=== PATIENT | male | born 1960 | race Caucasian/White ===

== ENCOUNTER 2019-01-28 12:55 | Emergency (ER) | payer OTHER ==
[2019-01-28 13:34] VITALS: BP 147/90; PULSE 82
--- NOTE | 2019-01-28 13:38 | EDM.PDOC ---
ED HPI GENERAL MEDICAL PROBLEM - General Chief Complaint: Upper Extremity Injury/Pain Stated Complaint: left hand crush injury Time Seen by Provider: 01/28/19 13:19 Source of Information: Reports: Patient History Limitations: Reports: No Limitations - History of Present Illness INITIAL COMMENTS - FREE TEXT/NARRATIVE: Patient's left hand was injured at patient's work station, contusion sustained diagonally across base of 2nd/3rd fingers. He denies having contact with the metal over palm/other fingers. Complains that it is stiff to try to move 2nd and 3rd fingers, some tenderness also, although more in 3rd finger. Stiffness has improved since incident. No deformity. No numbness. Skin intact. No other complaints. Left Finger-Middle Pain Score (Numeric/FACES): 5 - Related Data Allergies Allergy/AdvReac Type Severity Reaction Status Date / Time Penicillins Allergy Cannot Verified 01/28/19 13:17 Remember bupropion [From Contrave] AdvReac Hypertensio Unverified 01/28/19 13:17 n cyclobenzaprine AdvReac Nausea Verified 01/28/19 13:16 [From Flexeril] naltrexone [From Contrave] AdvReac Hypertensio Unverified 01/28/19 13:17 n Home Meds: Home Meds Aspirin [Halfprin] 81 mg PO DAILY 01/28/19 [History] Metoprolol Succinate 25 mg PO DAILY 01/28/19 [History] Ramipril 1 cap PO BID 01/28/19 [History] Simvastatin 20 mg PO BEDTIME 01/28/19 [History] Past Medical History Cardiovascular History: Reports: High Cholesterol, Hypertension Endocrine/Metabolic History: Reports: Obesity/BMI 30+ Social & Family History - Family History Family Medical History: Noncontributory - Tobacco Use Smoking Status *Q: Never Smoker - Caffeine Use Caffeine Use: Reports: Coffee, Soda - Alcohol Use Alcohol Use History: Yes Days Per Week of Alcohol Use: 2 Number of Drinks Per Day: 3 Total Drinks Per Week: 6 - Recreational Drug Use Recreational Drug Use: No Drug Use in Last 12 Months: No Review of Systems - Review of Systems Review Of Systems: ROS reveals no pertinent complaints other than HPI. ED EXAM, GENERAL - Physical Exam Exam: See Below Exam Limited By: No Limitations General Appearance: Alert, WD/WN, No Apparent Distress Eye Exam: Bilateral Eye: EOMI, PERRL Throat/Mouth: Normal Lips, Normal Voice, No Airway Compromise Head: Atraumatic, Normocephalic Neck: Supple Cardiovascular: Normal Peripheral Pulses Extremities: Other (Exam of left hand and fingers shows no swelling/redness/ discoloration of either hand or fingers. Skin intact. Tendon function appears intact, although patient moves 3rd finger stiffly. Able to flex/extend all digits. No focal tenderness with palpation over fingers/hand. No bruising. ) Neurological: Alert, Oriented, Normal Cognition Psychiatric: Normal Affect, Normal Mood Skin Exam: Warm, Dry, Intact, Normal Color. No: Ecchymosis, Erythema, Mottled, Pallor, Wound/Incision Course - Vital Signs Last Recorded V/S: Last Vital Signs Temp 36.9 C 01/28/19 13:33 Pulse 82 01/28/19 13:33 Resp 18 01/28/19 13:33 BP 147/90 H 01/28/19 13:33 Pulse Ox 99 01/28/19 13:33 - Orders/Labs/Meds Orders: Active Orders 24 hr Category Date Time Status Hand Comp Min 3V Lt [CR] Stat Exams 01/28/19 13:02 Taken Meds: Medications Discontinued Medications Generic Name Dose Route Start Last Admin Trade Name Freq PRN Reason Stop Dose Admin Acetaminophen 650 mg 01/28/19 13:36 Tylenol PO 01/28/19 13:37 NOW ONE - Re-Assessments/Exams Free Text/Narrative Re-Assessment/Exam: 01/28/19 13:56 Xrays of hands/fingers performed and no acute fracture identified. Changes in joints suggestive of degenerative joint disease. Small opaque body noted distal index finger that may be from previous injury/no correlating pain complaint at that site. Suspect soft tissue injury. Tendon function appears intact. Will take patient off work for rest of day. He is to return to work tomorrow ( already says that pain and stiffness is improving since incident). Precautions reviewed. To follow up tomorrow at clinic for recheck if further restrictions are needed. Tylenol PO given in ER. BP initially high upon arrival. Improved significantly throughout stay once patient more comfortable/calmed down. Departure - Departure Time of Disposition: 13:34 Disposition: Home, Self-Care 01 Condition: Good Clinical Impression: Contusion of left hand including fingers Qualifiers: Encounter type: initial encounter Qualified Code(s): S60.222A - Contusion of left hand, initial encounter - Discharge Information *PRESCRIPTION DRUG MONITORING PROGRAM REVIEWED*: Not Applicable *COPY OF PRESCRIPTION DRUG MONITORING REPORT IN PATIENT PACHE[facility]: Not Applicable Instructions: Crush Injury of the Hand, [id number] Referrals: Zeenat Tello PA [Primary Care Provider] - Forms: ED Department Discharge Additional Instructions: Ice/rest injured hand today. Follow up tomorrow at clinic if further restrictions are needed/no significant improvement noted. Tylenol ok to use to help with discomfort. NSAIDS such as Aleve or Ibuprofen can be used but may inhibit the ability of your blood pressure medications to improve blood pressure - My Orders Last 24 Hours: My Active Orders 01/28/19 13:02 Hand Comp Min 3V Lt [CR] Stat - Assessment/Plan Last 24 Hours: My Active Orders 01/28/19 13:02 Hand Comp Min 3V Lt [CR] Stat
[2019-01-28] MEDS: Acetaminophen 325 MG Tab PO ONE (14:02)
== END 2019-01-28 14:04 | disposition home or self-care (01) ==
LOC: LL.ED 12:55
DX: S60.222A Contusion of left hand, initial encounter (principal); I10 Essential (primary) hypertension; E66.9 Obesity, unspecified; E78.00 Pure hypercholesterolemia, unspecified; Z88.0 Allergy status to penicillin; Z88.8 Allergy status to other drugs, medicaments and biological substances; Z79.82 Long term (current) use of aspirin; Z79.899 Other long term (current) drug therapy; Z68.38 Body mass index [BMI] 38.0-38.9, adult; X58.XXXA Exposure to other specified factors, initial encounter; Y92.89 Other specified places as the place of occurrence of the external cause; Y99.0 Civilian activity done for income or pay
CPT/HCPCS: 73130-LT; 99283-25

== ENCOUNTER 2020-04-08 07:54 | Day surgery (SDC) | payer OTHER ==
[2020-04-07 10:21] LABS: CORONAVIRUS COVID-19 NAA NEGATIVE (NEGATIVE)
[~2020-04-08 07:54] MED LIST: Sodium Chloride 0.9% 10 ML Syringe FLUSH PRN
[2020-04-08] MEDS ORDERED: Midazolam 1 MG/ML 2 ML SDV ONE ×2 (08:51→08:55)
[2020-04-08] MEDS ORDERED: Propofol 200 MG/20 ML SDV ONE ×2 (08:52→08:55)
[2020-04-08] MEDS: Lactated Ringers 1,000 ML IV SCH (09:07)
--- NOTE | 2020-04-08 09:16 | PCM.HPR ---
H & P Addendum review - H & P Addendum Review Date of Original H & P: 03/19/20 Date Reviewed: 04/08/20 Time Reviewed: 09:16 Patient was Examined: No Changes
[2020-04-08] MEDS: Bacitracin Oint 1 GM U/D Packet TOP ONE (09:47)
--- NOTE | 2020-04-08 09:56 | PCM.OPNOTE ---
- General Post-Op/Procedure Note Date of Surgery/Procedure: 04/08/20 Operative Procedure(s): R CTR Pre Op Diagnosis: R CTS Post-Op Diagnosis: Same Anesthesia Technique: Local, MAC Primary Surgeon: Chucky Mensah Anesthesia Provider: Robina Russ EBMalu in mLs: 0 Complications: None Condition: Good
--- NOTE | 2020-04-08 11:30 | OR ---
Date of Procedure: 04/08/2020 PREOPERATIVE DIAGNOSIS: Right carpal tunnel syndrome. POSTOPERATIVE DIAGNOSIS: Right carpal tunnel syndrome. PROCEDURE: Right carpal tunnel release. ANESTHESIA: Local MAC. BRIEF HISTORY: This is a 59-year-old male who was recently evaluated for bilateral hand pain and paresthesias. Nerve conduction study revealed moderately severe right carpal tunnel syndrome and moderate left carpal tunnel syndrome. He is here today for right carpal tunnel release. Distribution of the symptoms is in the median nerve distribution. We discussed the procedure as well as the risks and complications, and informed consent was obtained. DESCRIPTION OF PROCEDURE: The patient was brought to the operating room where IV sedation was administered. Right hand and forearm were exsanguinated and tourniquet inflated. Hand and forearm were prepped and draped sterilely. 4 mL of 1% lidocaine was used to infiltrate the palmar crease. A routine incision was made in the crease over the transverse carpal ligament and extended through the subcutaneous tissue and palmar aponeurosis until the ligament was identified. This was sharply incised until the median nerve was visible. The ligament was split distally into the palm, then proximally into the wrist. Finger palpation and inspection revealed all constricting bands to be released. The wound was irrigated and closed with interrupted 4-0 Prolene vertical mattress sutures. Antibiotic ointment and a bulky sterile pressure dressing were applied. The patient tolerated the procedure well and returned to recovery in stable condition. Blood loss none. REGINA HUNT MD /[id number]
[2020-04-08 14:08] VITALS: BP 151/87; PULSE 72
== END 2020-04-08 10:54 | disposition home or self-care (01) ==
LOC: LL.SDS 07:54
PROVIDERS: ATTEND Surgery
DX: G56.03 Carpal tunnel syndrome, bilateral upper limbs (principal); G56.12 Other lesions of median nerve, left upper limb; I10 Essential (primary) hypertension; E78.5 Hyperlipidemia, unspecified; E66.9 Obesity, unspecified; G89.29 Other chronic pain; M25.561 Pain in right knee; Z79.82 Long term (current) use of aspirin; Z68.39 Body mass index [BMI] 39.0-39.9, adult; Z79.899 Other long term (current) drug therapy; Z88.0 Allergy status to penicillin; Z01.812 Encounter for preprocedural laboratory examination; Z20.822 Contact with and (suspected) exposure to COVID-19
CPT/HCPCS: 01810; J2001; J2250; J2704; J7120; U0002

== ENCOUNTER 2020-05-07 07:53 | Day surgery (SDC) | payer OTHER ==
[~2020-05-07 07:53] MED LIST changes: +Lactated Ringers 1,000 ML IV SCH
[2020-05-07] MEDS ORDERED: Midazolam 1 MG/ML 2 ML SDV ONE ×2 (08:30→09:13)
[2020-05-07] MEDS ORDERED: Propofol 200 MG/20 ML SDV ONE ×2 (08:30→09:13)
--- NOTE | 2020-05-07 09:53 | PCM.HP.2 ---
H&P History of Present Illness - General Date of Service: 05/07/20 Admit Problem/Dx: Admission Diagnosis/Problem Admission Diagnosis/Problem Carpal tunnel syndrome of left wrist Source of Information: Patient, Old Records History Limitations: Reports: No Limitations - History of Present Illness Initial Comments - Free Text/Narative: Here for L CTR - Related Data Allergies/Adverse Reactions: Allergies Allergy/AdvReac Type Severity Reaction Status Date / Time Penicillins Allergy Cannot Verified 05/07/20 08:27 Remember bupropion [From Contrave] AdvReac Hypertensio Verified 05/07/20 08:27 n cyclobenzaprine AdvReac Nausea Verified 05/07/20 08:27 [From Flexeril] naltrexone [From Contrave] AdvReac Hypertensio Verified 05/07/20 08:27 n Home Medications: Home Meds Aspirin [Halfprin] 81 mg PO DAILY 01/28/19 [History] Metoprolol Succinate 25 mg PO DAILY 01/28/19 [History] Ramipril 10 mg PO BID 01/28/19 [History] Simvastatin 20 mg PO BEDTIME 01/28/19 [History] Past Medical History Other HEENT History: wears glasses Cardiovascular History: Reports: High Cholesterol, Hypertension Respiratory History: Reports: Sleep Apnea Musculoskeletal History: Reports: Other (See Below) Other Musculoskeletal History: nicolás Carpal Tunnel Syndrome. Unspecified Crush Injury. Chronic R knee pain Endocrine/Metabolic History: Reports: Obesity/BMI 30+ - Past Surgical History HEENT Surgical History: Social & Family History - Family History Family Medical History: No Pertinent Family History - Caffeine Use Caffeine Use: Reports: Soda H&P Review of Systems - Review of Systems: Review Of Systems: Comprehensive ROS is negative, except as noted in HPI. Exam - Exam Exam: See Below - Vital Signs Vital Signs: Last Vital Signs Temp 98.7 F 05/07/20 08:25 Pulse Resp 18 05/07/20 08:25 BP 182/100 H 05/07/20 08:25 Pulse Ox 97 05/07/20 08:25 Weight: 113.398 kg - Exam General: Alert, Oriented Lungs: Clear to Auscultation, Normal Respiratory Effort Cardiovascular: Regular Rate, Regular Rhythm Sepsis Event Note - Focused Exam Vital Signs: Vital Signs Temp Resp BP Pulse Ox 05/07/20 08:25 98.7 F 18 182/100 H 97 Problem List Initiated/Reviewed/Updated: Yes Orders Last 24hrs: Active Orders 24 hr Category Date Time Status Patient Status [ADT] Routine ADT 05/07/20 07:00 Active Patient to Empty Bladder [RC] ASDIRECTED Care 05/07/20 07:00 Active Peripheral IV Care [RC] . DIRECTED Care 05/07/20 07:00 Active Verify Patient Consent Obtain [RC] ASDIRECTED Care 05/07/20 07:00 Active Nothing Per Oral Diet [DIET] Diet 05/07/20 Breakfast Active Lactated Ringers [Ringers, Lactated] 1,000 ml Med 05/07/20 07:00 Active IV ASDIRECTED Sodium Chloride 0.9% [Saline Flush] Med 05/07/20 07:00 Active 10 ml FLUSH ASDIRECTED PRN Peripheral IV Insertion Adult [OM.PC] Routine Oth 05/07/20 07:00 Ordered Medication Orders Lactated Ringer's (Ringers, Lactated) 1,000 mls @ 125 mls/hr IV ASDIRECTED NELLIE Last Admin: 05/07/20 08:43 Dose: 125 mls/hr Documented by: SUMMER Sodium Chloride (Saline Flush) 10 ml FLUSH ASDIRECTED PRN PRN Reason: Keep Vein Open Assessment/Plan Comment:: L CTS Ok to proceed with L CTR
--- NOTE | 2020-05-07 09:55 | PCM.OPNOTE ---
- General Post-Op/Procedure Note Date of Surgery/Procedure: 05/07/20 Operative Procedure(s): L CTR Pre Op Diagnosis: L CTS Post-Op Diagnosis: Same Primary Surgeon: Chucky Mensah Anesthesia Provider: Robina Russ Complications: None Condition: Good
[2020-05-07 10:00] VITALS: PULSE 79
--- NOTE | 2020-05-07 11:09 | OR ---
Date of Procedure: 05/07/2020 PREOPERATIVE DIAGNOSIS: Left carpal tunnel syndrome. POSTOPERATIVE DIAGNOSIS: Left carpal tunnel syndrome. PROCEDURE: Left carpal tunnel release. ANESTHESIA: Local with IV sedation. DESCRIPTION OF PROCEDURE: Patient was brought to the procedure room where IV sedation was administered. The left hand and forearm were exsanguinated and tourniquet inflated. The hand and forearm were prepped and draped sterilely. 4 mL of 1% lidocaine was used to infiltrate the palmar crease. A routine skin incision was made through the skin and subcutaneous tissue and extended through the palmar aponeurosis until the transverse carpal ligament was identified. The ligament was sharply incised until the median nerve was visible. The ligament was then split distally into the palm and proximally into the hand. The finger palpation and inspection revealed all constricting bands to be released. The wound was irrigated and skin closed with interrupted 4-0 Prolene vertical mattress sutures. Antibiotic ointment and a bulky sterile pressure dressing were applied. Patient tolerated the procedure well. Blood loss, none. He returned to postanesthesia in stable condition. REGINA HUNT MD /[id number]
[2020-05-07 14:03] VITALS: BP 192/112
== END 2020-05-07 10:41 | disposition home or self-care (01) ==
LOC: LL.SDS 07:53
PROVIDERS: ATTEND Surgery
DX: G56.02 Carpal tunnel syndrome, left upper limb (principal); E78.00 Pure hypercholesterolemia, unspecified; I10 Essential (primary) hypertension; E66.9 Obesity, unspecified; Z01.812 Encounter for preprocedural laboratory examination; Z20.822 Contact with and (suspected) exposure to COVID-19; Z88.0 Allergy status to penicillin; Z88.8 Allergy status to other drugs, medicaments and biological substances; Z79.82 Long term (current) use of aspirin; Z79.899 Other long term (current) drug therapy; Z68.38 Body mass index [BMI] 38.0-38.9, adult
CPT/HCPCS: 01810; J2250; J2704; J7120; U0002

== ENCOUNTER 2022-12-27 10:11 | Emergency (ER) | payer BC ==
[2022-12-27] MEDS ORDERED: Sodium Chloride 0.9% 10 ML Syringe FLUSH PRN (10:45)
[2022-12-27 10:53] LABS: BASOPHILS ABSOLUTE AUTO 0.02 K/uL (0.00-0.20); BASOPHILS PERCENT AUTO 0.3 % (0.0-2.0); EOSINOPHILS ABSOLUTE AUTO 0.26 K/uL (0.00-0.50); EOSINOPHILS PERCENT AUTO 3.8 % (0.0-5.0); HEMATOCRIT 43.4 % (39.0-49.0); HEMOGLOBIN 14.9 g/dL (13.1-16.8); LYMPHOCYTES ABSOLUTE AUTO 1.92 K/uL (0.50-3.50); LYMPHOCYTES PERCENT AUTO 28.4 % (10.0-50.0); MEAN CORPUSCULAR HEMOGLOBIN 32.5 pg (28.2-33.3); MEAN CORPUSCULAR HGB CONC 34.3 g/dL (31.7-36.0); MEAN CORPUSCULAR VOLUME 94.8 fL (84.0-98.0); MONOCYTES ABSOLUTE AUTO 0.64 K/uL (0.00-1.00); MONOCYTES PERCENT AUTO 9.5 % (2.0-14.0); NEUTROPHILS ABSOLUTE AUTO 3.93 K/uL (1.40-7.00); PLATELET COUNT,PLT 183 K/uL (150-350); RED BLOOD CELL COUNT 4.58 M/uL (4.33-5.41); RED CELL DISTRIBUTION WIDTH 13.6 % (11.2-14.1); WHITE BLOOD CELL COUNT,WBC 6.8 K/uL (4.0-10.2)
[2022-12-27] MEDS: Aspirin 81 MG Tab.Chew PO ONE (11:14)
[2022-12-27 11:16] LABS: ALANINE AMINOTRANSFERASE,ALT 58 U/L (12-78); ALBUMIN 3.7 g/dL (3.4-5.0); ALKALINE PHOSPHATASE 94 IU/L (46-116); ANION GAP 6.4 meq/L (7-15); ASPARTATE AMNIOTRANSFERASE,AST 57 U/L (15-37); BILIRUBIN TOTAL 0.6 mg/dL (0.2-1.0); BLOOD UREA NITROGEN,BUN 12 mg/dL (7-18); CALCIUM 9.2 mg/dL (8.5-10.1); CARBON DIOXIDE,CO2 28.6 mmol/L (21.0-32.0); CHLORIDE,CL 105 mmol/L (98-107); CREATININE 1.03 mg/dL (0.51-1.17); ESTIMATED GFR 83 mL/min (>=60); GLUCOSE RANDOM 102 mg/dL (70-99); LIPASE 50 U/L (16-77); POTASSIUM,K 4.8 mmol/L (3.5-5.1); PROTEIN TOTAL,TP 7.3 g/dL (6.4-8.2); SODIUM,NA 140 mmol/L (136-145)
[2022-12-27 11:34] LABS: INR 1.1 (0.9-1.1); PROTHROMBIN TIME 10.9 SEC (9.0-11.1); PTT,PARTIAL THROMBOPLSTIN TIME 25.4 SEC (23.6-29.8)
[2022-12-27 15:56] VITALS: BP 157/89; PULSE 72
== END 2022-12-27 11:48 | disposition home or self-care (01) ==
LOC: LL.ED 10:11
DX: F41.9 Anxiety disorder, unspecified (principal); R07.89 Other chest pain; I10 Essential (primary) hypertension; E78.00 Pure hypercholesterolemia, unspecified; E66.9 Obesity, unspecified; Z68.39 Body mass index [BMI] 39.0-39.9, adult; Z88.8 Allergy status to other drugs, medicaments and biological substances; Z88.0 Allergy status to penicillin; Z79.82 Long term (current) use of aspirin; Z79.899 Other long term (current) drug therapy
CPT/HCPCS: 36415; 71045; 80053; 83690; 83735; 84484; 85025; 85610; 85730; 93005; 93010; 99284; 99285; A9270-GY

== ENCOUNTER 2023-02-16 12:25 | Day surgery (SDC) | payer BC ==
[~2023-02-16 12:25] MED LIST changes: -Lactated Ringers 1,000 ML IV SCH; +Midazolam 1 MG/ML 2 ML SDV ONE; +Propofol 200 MG/20 ML SDV ONE; -Sodium Chloride 0.9% 10 ML Syringe FLUSH PRN
[2023-02-16] MEDS ORDERED: Sodium Chloride 0.9% 10 ML Syringe FLUSH PRN (12:30)
[2023-02-16] MEDS: Lactated Ringers 1,000 ML IV SCH (13:20)
[2023-02-16 16:03] VITALS: BP 145/85; PULSE 78
== END 2023-02-16 15:40 | disposition home or self-care (01) ==
LOC: LL.SDS 12:25
PROVIDERS: ATTEND Surgery
DX: D12.2 Benign neoplasm of ascending colon (principal); D12.4 Benign neoplasm of descending colon; D12.5 Benign neoplasm of sigmoid colon
CPT/HCPCS: 00812; J2250; J2704; J7120

== ENCOUNTER 2024-06-13 07:59 | Day surgery (SDC) | payer BC ==
[2024-06-13] MEDS ORDERED: Sodium Chloride 0.9% 10 ML Syringe FLUSH PRN (08:00)
[2024-06-13] MEDS: Lactated Ringers 1,000 ML IV SCH (08:10)
[2024-06-13] MEDS ORDERED: Propofol 200 MG/20 ML SDV ONE ×2 (08:26→10:15)
[2024-06-13] MEDS ORDERED: Midazolam 1 MG/ML 2 ML SDV ONE (08:26)
[2024-06-13 10:24] VITALS: BP 119/62; PULSE 79
== END 2024-06-13 10:38 | disposition home or self-care (01) ==
LOC: LL.SDS 07:59
PROVIDERS: ATTEND Surgery
DX: C18.6 Malignant neoplasm of descending colon (principal); C77.2 Secondary and unspecified malignant neoplasm of intra-abdominal lymph nodes; K62.1 Rectal polyp; K52.9 Noninfective gastroenteritis and colitis, unspecified; I10 Essential (primary) hypertension; E78.5 Hyperlipidemia, unspecified; E66.9 Obesity, unspecified; Z79.899 Other long term (current) drug therapy
CPT/HCPCS: 45384; 45385; J2250; J2704; J7120; 00811